=== PATIENT | female | born 1955 | race Caucasian/White ===

== ENCOUNTER 2017-05-22 09:42 | Emergency (ER) | payer BC ==
[2017-05-22] MEDS ORDERED: PROPARACAINE HCL 0.5% OPHTHALMIC SOL ONE (10:00)
[2017-05-22] MEDS ORDERED: ERYTHROMYCIN OPTHAL 1 GM TUBE ONE (10:52)
[2017-05-22 11:16] VITALS: BP 130/71; PULSE 73; RESP 16; TEMP 98; O2SAT 98
== END 2017-05-22 11:05 | disposition home or self-care (01) ==
LOC: ED 09:42
DX: S05.01XA Injury of conjunctiva and corneal abrasion without foreign body, right eye, initial encounter (principal); W22.8XXA Striking against or struck by other objects, initial encounter
CPT/HCPCS: 99282